=== PATIENT | male | born 1980 | race Caucasian/White ===

== ENCOUNTER 2020-12-16 10:42 | Emergency (ER) | payer SELFPAY ==
[~2020-12-16] VITALS: Ht 180.3 cm; Wt 95.3 kg
[2020-12-16] MEDS ORDERED: DELSYM30 MG/5 ML PO (11:06)
== END 2020-12-16 13:15 | disposition home or self-care (01) ==
LOC: ER1 10:42
DX: Z23 Encounter for immunization (principal); U07.1 COVID-19; Z88.0 Allergy status to penicillin
CPT/HCPCS: 99284; M0243